=== PATIENT | female | born 1935 | race Caucasian/White ===

== ENCOUNTER 2021-05-22 14:12 | Emergency (ER) | payer MEDICARE, SELFPAY ==
--- NOTE | ~2021-05-22 | XR_ITS ---
EXAMINATION: XR chest 2V EXAM DATE: 05/22/2021 14:55 INDICATION: Cough and congestion, symptoms for days. TECHNIQUE: Frontal and lateral projections of the chest obtained and reviewed. Comparison is made to prior examination from 07/11/2018. FINDINGS: The lungs are clear. There are no pleural effusions. The cardiomediastinal silhouette is within normal limits. There is no pneumothorax suspected. The bones and soft tissues are unremarkab le. There is no significant interval change. There is aortic arteriosclerosis. IMPRESSION: No acute cardiopulmonary findings. Reviewed, dictated and finalized at location A. LINER MAKER
[2021-05-22 14:22] VITALS: BP 133/56; PULSE 71; RESP 16; TEMP 36.9; O2SAT 97
[2021-05-22 14:36] VITALS: BP 133/56; PULSE 71; RESP 16; TEMP 36.9; O2SAT 97
--- NOTE | 2021-05-22 14:41 | ED.GENADULT ---
HPI - General Adult General Chief complaint: Upper Respiratory Infection Stated complaint: Cough/Fever Source: patient and family (Daughter ) Mode of arrival: ambulatory Limitations: no limitations History of Present Illness HPI narrative: Pleasant 86 y/o female. PMHx MDD, HTN, HLD, DM II, Former smoker. Presents to [facility] today with Family. CC is nasal congestion, purulent nasal discharge, as well as cough with 'green' phlegm production. Manifestations present for the past 72 hours, worsening. She also endorses mild bilateral ear ache and subjective fever at home. Did not actually measure her temperature, but 'felt warm'. No chest pain, dyspnea, wheezing, edema. No known ill contacts. She tells me that she has had these symptoms many times before, and would like to catch it before it turns into pneumonia . Parties are without additional acute c/o illness upon PE. Related Data Home Medications Medication Instructions Recorded Confirmed amlodipine 10 mg PO DAILY 05/22/21 05/22/21 atorvastatin 40 mg PO DAILY 05/22/21 05/22/21 carvedilol 3.125 mg PO BID 05/22/21 05/22/21 metformin 1,000 mg PO BID 05/22/21 05/22/21 paroxetine HCl 20 mg PO DAILY 05/22/21 05/22/21 Allergies Allergy/AdvReac Type Severity Reaction Status Date / Time codeine Allergy Mild Rash Verified 05/22/21 14:33 iodine Allergy Mild Vomiting Verified 05/22/21 14:33 iron Allergy Mild Hives Verified 05/22/21 14:33 Penicillins Allergy Mild Rash Verified 05/22/21 14:33 Sulfa (Sulfonamide Allergy Mild Rash Verified 05/22/21 14:33 Antibiotics) Review of Systems Review of Systems: CONSTITUTIONAL: Positive fever. No chills, sweats. EYES: Denies visual changes, redness, discharge. ENT: Positive rhinorrhea, congestion. No sore throat, otalgia. CARDIOVASCULAR: Denies chest pain, palpitations, edema. RESPIRATORY: Denies dyspnea, wheezing. Positive productive 'green' cough GASTROINTESTINAL: Denies abdominal pain, nausea, vomiting, diarrhea. GENITOURINARY: Denies dysuria, hematuria, abnormal discharge SKIN: Denies rash or itching. MUSCULOSKELETAL: Denies acute back pain, joint pain, or myalgia. NEUROLOGIC: Denies numbness, or focal weakness. PSYCHIATRIC: Denies anxiety or depression. All systems reviewed & are unremarkable except as noted in HPI and below Exam Narrative: GENERAL: This is a well-nourished, well-developed adult, in no apparent distress. HEAD: normocephalic, atraumatic. EYES: PERRL. Sclera clear/white. EARS: External ears normal, auditory canals clear and without drainage, TMs normal. NOSE: External nose normal. Positive Rhinorrhea, no obstruction, nares patent. THROAT: Mucous membranes moist, posterior pharynx clear. No exudates. NECK: Neck supple, non-tender without lymphadenopathy, masses or thyromegaly. CARDIOVASCULAR: Regular rate and rhythm without murmurs, gallops, or rubs. No edema. RESPIRATORY: Upper airway Rhonchi, cleared with cough. Breath sounds equal bilaterally. No wheezes, rales, or stridor. No distress. GASTROINTESTINAL: Abdomen soft, non-tender, nondistended. Bowel sounds are active. No guarding. SKIN: warm, intact with no suspicious lesions or rash, good texture and turgor. NEURO: Alert, active, and age appropriate. No focal neurologic deficits. Course Vital Signs Vital signs: Vital Signs Temperature 36.9 C 05/22/21 14:22 Pulse Rate 71 05/22/21 14:22 Respiratory Rate 16 05/22/21 14:22 Blood Pressure 133/56 L 05/22/21 14:22 Pulse Oximetry 97 05/22/21 14:22 Temperature 36.9 C 05/22/21 14:36 Pulse Rate 71 05/22/21 14:36 Respiratory Rate 16 05/22/21 14:36 Blood Pressure 133/56 L 05/22/21 14:36 Pulse Oximetry 97 05/22/21 14:36 Medical Decision Making [facility] Narrative Medical decision making narrative: -No hypoxemia, no respiratory distress. Appears non-toxic. -Plain film chest imaging reveals No acute cardiopulmonary findings. -Former smoker and Hx inc
== END 2021-05-22 15:07 | disposition home or self-care (01) ==
PROVIDERS: Emergency Provider Nurse Practitioner Adult Health; PCP Internal Medicine
DX: J40 Bronchitis, not specified as acute or chronic (principal); J06.9 Acute upper respiratory infection, unspecified; F32.9 Major depressive disorder, single episode, unspecified; I10 Essential (primary) hypertension; E11.9 Type 2 diabetes mellitus without complications; Z87.891 Personal history of nicotine dependence
CPT/HCPCS: 71046; 99213; G0463

== ENCOUNTER 2021-10-30 17:06 | Emergency (ER) | payer MEDICARE, SELFPAY ==
--- NOTE | ~2021-10-30 | XR_ITS ---
EXAMINATION: XR chest 2V Exam Date/Time: 10/30/2021 17:30 CDT CLINICAL HISTORY: COUGH X 12 DAYS. HX: PNEUMONIA. SOB ON EXERTION. Comparison: 05/22/2021.. RESULT: Lines, tubes, and devices: None. Lungs and pleura: Clear. Cardiomediastinal silhouette: Stable cardiomediastinal silhouette. Other: No acute osseous or upper abdominal finding. IMPRESSION: No acute cardiopulmonary process Reviewed, dictated and finalized at location K.
--- NOTE | 2021-10-30 17:10 | ED.URI ---
HPI - URI/Sore Throat General Chief Complaint: Upper Respiratory Infection Stated Complaint: Cough/Chest Congestion Time Seen by Provider: 10/30/21 17:10 Source: patient Mode of arrival: ambulatory Limitations: no limitations History of Present Illness HPI Narrative: Ms. Holder is an 86-year-old female patient presenting to the clinic today with complaints of cough and chest congestion. She reports the symptoms have been going from on for approximately 12 days. Has had fever that started yesterday however today she is afebrile. Reports productive cough however she has not able to expectorate the phlegm. Reports she gets this every year and it turns into pneumonia. Her daughter is here with her today and states that they are trying to catch it before it turns into pneumonia. States that she is mildly short of breath upon exertion. MD elicited complaint: sore throat and nasal congestion Related Data Home Medications Medication Instructions Recorded Confirmed atorvastatin 40 mg PO DAILY 05/22/21 10/30/21 carvedilol 3.125 mg PO BID 05/22/21 10/30/21 metformin 1,000 mg PO DAILY 05/22/21 10/30/21 paroxetine HCl 20 mg PO DAILY 05/22/21 10/30/21 aspirin [Adult Low Dose Aspirin] 81 mg PO DAILY 10/30/21 10/30/21 Allergies Allergy/AdvReac Type Severity Reaction Status Date / Time codeine Allergy Mild Rash Verified 10/30/21 17:28 iodine Allergy Mild Vomiting Verified 10/30/21 17:28 iron Allergy Mild Hives Verified 10/30/21 17:28 Penicillins Allergy Mild Rash Verified 10/30/21 17:28 Sulfa (Sulfonamide Allergy Mild Rash Verified 10/30/21 17:28 Antibiotics) Review of Systems Review of Systems: Pertinent positives per HPI. Patient denies any fever, chills, rash, headache, visual changes, dizziness, cough, shortness of breath, chest pain, palpitations, nausea, vomiting, diarrhea, constipation, abdominal pain, or any urinary issues. PMFSH Comments At the time of my signature, I reviewed and agree with the nursing past medical, surgical, social, and family history. There is no relevant family history pertinent to the patient complaint. Exam Narrative: General: Well-developed, well nourished, in no apparent distress Head: Normocephalic, atraumatic Eyes: Pupils equally round and reactive to light bilaterally, EOM intact, sclera and conjunctive clear, no discharge, lids normal Ears: TMs intact and clear, ear canals clear, no drainage, grossly hearing normal. Nose: Nares patent, no discharge, no inflammation, no sinus tenderness. Mouth: Oral pharynx without lesions or masses, good dentition, MMM. Neck: Supple, trachea midline, no enlargement of anterior or posterior cervical nodes, no thyroid masses or goiter palpable. Cardio: Regular rate and rhythm, s1 and s2 normal, no murmur appreciated. Resp: Diminished lung sounds in the bases otherwise clear to auscultation bilaterally, no rhonchi, rales, wheezing or rubs Course Course Emergency Course: Portions of this record may have been created with voice recognition software. Level of Care: Express Care Visit Vital Signs Vital signs: Vital signs reviewed MDM - URI/Sore Throat MDM Narrative Medical decision making narrative: At the time of assessment patient is resting comfortably on the exam table. She reports cough and congestion x12 days. History of frequent pneumonia. Lung sounds clear but diminished in the bases, x-ray performed Differential Diagnosis Differential diagnosis: Likely upper respiratory infection, croup, otitis media, sinusitis, viral infection, bronchitis, influenza and pharyngitis Imaging Data Attestation: I personally reviewed and interpreted this imaging study as follows: My impression: Negative for pneumonia Radiologist's impression: [facility] [address] [place], [place] [phone] XRay ReportSigned Patient: Tavia Holder JDOB: 1935MR#: [id number]/Sex: 86 / FAcct:[id number]: EXPBETH ADM Date: 10/30/21Attending Dr:
[2021-10-30 17:12] VITALS: BP 124/50; PULSE 82; RESP 18; TEMP 36.3; O2SAT 98
[2021-10-30 17:30] VITALS: BP 124/50; PULSE 82; RESP 18; TEMP 36.3; O2SAT 98
== END 2021-10-30 17:50 | disposition home or self-care (01) ==
PROVIDERS: Emergency Provider Nurse Practitioner Family; PCP Internal Medicine
DX: J40 Bronchitis, not specified as acute or chronic (principal); Z79.82 Long term (current) use of aspirin; I25.10 Atherosclerotic heart disease of native coronary artery without angina pectoris; E78.00 Pure hypercholesterolemia, unspecified; I10 Essential (primary) hypertension; I25.2 Old myocardial infarction; Z86.73 Personal history of transient ischemic attack (TIA), and cerebral infarction without residual deficits; K21.9 Gastro-esophageal reflux disease without esophagitis; E11.9 Type 2 diabetes mellitus without complications; F32.A Depression, unspecified
CPT/HCPCS: 71046; 99213; G0463

== ENCOUNTER 2022-06-11 12:37 | Emergency (ER) | payer MEDICARE, SELFPAY ==
--- NOTE | ~2022-06-11 | XR_ITS ---
XR chest 2V 06/11/2022 13:10 Indication: Shortness of breath Procedure: 2 view chest Comparison: Comparison to multiple prior studies sequentially, with oldest reviewed study dated 12/2017. Findings: Heart size normal. No focal air space disease, pulmonary edema, pleural effusion or suspect ed pneumothorax. There is apical pleural thickening/scarring. There is an ill-defined nodular density left mid thorax. There is atherosclerosis of the aorta. Impression: 1: Ill-defined nodular density left mid thorax. Follow-up CT chest recommended to exclude parenchymal nodule. 2: No acute cardiopulmonary disease. Reviewed, dictated and finalized at location A. ICAL THERAPY MANAGER Impression: 1: Ill-defined nodular density left mid thorax. Follow-up CT chest recommended to exclude parenchymal nodule. 2: No acute cardiopulmonary disease.
[2022-06-11 12:55] VITALS: BP 119/43; PULSE 72; RESP 16; TEMP 36.3; O2SAT 96
--- NOTE | 2022-06-11 13:50 | ED.URI ---
HPI - URI/Sore Throat General Chief Complaint: Upper Respiratory Infection Stated Complaint: cough/bronchitis Time Seen by Provider: 06/11/22 13:50 Source: patient, RN notes reviewed and old records reviewed Mode of arrival: ambulatory Limitations: no limitations History of Present Illness HPI Narrative: 87-year-old female presents to the [facility] complaints of I have bronchitis he states that she normally gets bronchitis this time of year. Has not really had anything since COVID broke out. States that she needs an antibiotic, does not want to use steroids nor inhaler because it since her over the edge. MD elicited complaint: cough Related Data Home Medications Medication Instructions Recorded Confirmed atorvastatin 40 mg tablet 40 mg PO DAILY 05/22/21 06/11/22 carvedilol 3.125 mg tablet 3.125 mg PO BID 05/22/21 06/11/22 metformin 1,000 mg tablet 1,000 mg PO DAILY 05/22/21 06/11/22 paroxetine HCl 20 mg tablet 20 mg PO DAILY 05/22/21 06/11/22 aspirin 81 mg tablet 81 mg PO DAILY 10/30/21 06/11/22 Allergies Allergy/AdvReac Type Severity Reaction Status Date / Time codeine Allergy Mild Rash Verified 06/11/22 13:02 iodine Allergy Mild Vomiting Verified 06/11/22 13:02 iron Allergy Mild Hives Verified 06/11/22 13:02 Penicillins Allergy Mild Rash Verified 06/11/22 13:02 Sulfa (Sulfonamide Allergy Mild Rash Verified 06/11/22 13:02 Antibiotics) Review of Systems Review of Systems: All systems reviewed & are unremarkable except as noted in HPI and below Constitutional: Constitutional: Reports no additional constitutional complaints, Denies body ache(s), Denies chills, Denies fever(s) and Denies headache(s) Eyes: Eyes: Reports no additional eye complaints ENT: Reports system reviewed and no additional complaints, except as documented and Denies headache(s) Cardiovascular: Cardiovascular: Reports no additional cardiovascular complaints, Denies chest pain and Denies dyspnea Respiratory: Respiratory: Reports no additional respiratory complaints, Denies chest congestion, Reports cough and Denies dyspnea Gastrointestinal: Gastrointestinal: Reports no additional gastrointestinal complaints and Denies abdominal pain Musculoskeletal: Musculoskeletal: Reports no additional musculoskeletal complaints Integumentary/Breasts: Skin/Breast: Reports system reviewed and no additional complaints, except as docu Neurologic: Reports system reviewed and no additional complaints, except as documented and Denies headache(s) Psychiatric: Psychiatric: Reports no additional psychiatric complaints Allergic/Immunologic: Allergic/Immunologic: Reports no additional allergic/immunologic complaints PMFSH Comments At the time of my signature, I reviewed and agree with the nursing past medical, surgical, social, and family history. There is no relevant family history pertinent to the patient complaint. Exam Const: General: cooperative, comfortable, no acute distress, well developed, alert, ill appearing chronically; not acutely and well nourished Nutritional Appearance: well nourished Orientation/consciousness: patient oriented x3 Limitations: no limitations HENMT: Head: normal to inspection Ears: external ears normal Face/Nose/Sinus: Normal external nose present, Normal nares present, Normal nasal mucous membranes and turbinates present and normal facial exam Face and sinus: normal facial exam Mouth: Yes Normal oral and palatal mucosa present, Yes lip normal and Yes moist mucous membranes abnormal Eyes: General: appearance normal, both eyes and all related structures Alignment and Position: alignment normal Pupils: Equal, round and reactive pupils present Neck: Neck: normal visual inspection, full ROM, no lymphadenopathy and no meningeal signs Chest: Chest palpation & inspection: normal inspection of the chest Resp: Effort & Inspection: normal respiratory effort and no use of accessory muscles Auscultation: clear to auscultation b
== END 2022-06-11 14:45 | disposition home or self-care (01) ==
PROVIDERS: Emergency Provider Nurse Practitioner; PCP Internal Medicine
DX: J40 Bronchitis, not specified as acute or chronic (principal); Z79.82 Long term (current) use of aspirin
CPT/HCPCS: 71046; 99213; G0463

== ENCOUNTER 2022-09-25 15:14 | Emergency (ER) | payer MEDICARE, SELFPAY ==
[2022-09-25 15:31] VITALS: BP 133/54; PULSE 80; RESP 18; TEMP 36.4; O2SAT 98
--- NOTE | 2022-09-25 15:47 | ED.GENADULT ---
HPI - General Adult General Chief complaint: Upper Respiratory Infection Stated complaint: Cough Source: patient Mode of arrival: ambulatory Limitations: no limitations History of Present Illness HPI narrative: Patient presents for evaluation of sick symptoms for last week. Symptoms include sinus congestion, bilateral ear pressure, yellow discharge from the nares, cough, and sore throat. No fever, chills, nausea, vomiting, diarrhea, shortness of breath. She typically has the symptoms twice per year and usually is given doxycycline which helps her symptoms resolved. She has taken steroids in the past which also helped. She does not smoke. She lives at an assisted nursing facility. She states several individuals at the nursing facility have recently had respiratory symptoms. Related Data Home Medications Medication Instructions Recorded Confirmed atorvastatin 40 mg tablet 40 mg PO DAILY 05/22/21 09/25/22 carvedilol 3.125 mg tablet 3.125 mg PO BID 05/22/21 09/25/22 metformin 1,000 mg tablet 1,000 mg PO DAILY 05/22/21 09/25/22 paroxetine HCl 20 mg tablet 20 mg PO DAILY 05/22/21 09/25/22 aspirin 81 mg tablet 81 mg PO DAILY 10/30/21 09/25/22 amlodipine 10 mg tablet 10 mg PO DAILY 09/25/22 09/25/22 Allergies Allergy/AdvReac Type Severity Reaction Status Date / Time codeine Allergy Mild Rash Verified 09/25/22 15:29 iodine Allergy Mild Vomiting Verified 09/25/22 15:29 iron Allergy Mild Hives Verified 09/25/22 15:29 Penicillins Allergy Mild Rash Verified 09/25/22 15:29 Sulfa (Sulfonamide Allergy Mild Rash Verified 09/25/22 15:29 Antibiotics) Review of Systems Review of Systems: CONSTITUTIONAL: Denies fever, chills, or sweats. EYES: Denies visual changes, redness, or discharge. ENT: Reports sinus congestion, thick yellow discharge from nares, ear pressure and sore throat CARDIOVASCULAR: Denies chest pain, palpitations, or edema. RESPIRATORY: Reports cough. Denies SOB. GASTROINTESTINAL: Denies abdominal pain, nausea, vomiting, or diarrhea. GENITOURINARY: Denies dysuria or hematuria. SKIN: Denies rash or itching. MUSCULOSKELETAL: Denies back pain, joint pain, or myalgia. NEUROLOGIC: Denies headache, numbness, dizziness, or weakness. PSYCHIATRIC: Denies anxiety or depression. PMFSH Past Medical History Medical History Diabetes Hyperlipidemia Hypertension Vitamin D deficiency Surgical History Surgical History No pertinent past surgical history Family History Family History Mother Family history non-contributory Social History Social History Smoking status: Never smoker Substance use: never Living arrangements: assisted living Gender identity (if verbalized by the patient): Female Sexual Orientation (if Verbalized by the Patient): Straight or Heterosexual Spiritual care concerns: No Exam Narrative: GENERAL: Well-appearing, well-nourished, and in no acute distress. HEAD: Normocephalic, atraumatic. EYES: PERRLA and EOMI. ENT: Bilateral maxillary sinus tenderness. There is thick yellow discharge in both nares. Mucous membranes moist. Oropharynx without tonsillar hypertrophy exudate or other lesions. Bilateral TMs pearly rizo nonbulging NECK: Supple. No adenopathy or masses. No carotid bruits or JVD CHEST: Clear to auscultation. No respiratory distress. No wheezes rales or rhonchi HEART: Regular rate and rhythm. No murmur heard. Normal peripheral pulses. ABDOMEN: Soft, nontender, nondistended, normal active bowel sounds. EXTREMITIES: Normal range of motion. No edema. SKIN: Warm, dry, no rash. NEURO: No focal deficits. Alert and oriented x3. PSYCH: Normal mood and affect. Course Course Emergency Course: This is an 87-year-old female who presented for
== END 2022-09-25 15:48 | disposition home or self-care (01) ==
PROVIDERS: Emergency Provider Nurse Practitioner; PCP Internal Medicine
DX: J01.90 Acute sinusitis, unspecified (principal); B96.89 Other specified bacterial agents as the cause of diseases classified elsewhere; E11.9 Type 2 diabetes mellitus without complications; E78.5 Hyperlipidemia, unspecified; I10 Essential (primary) hypertension; Z79.82 Long term (current) use of aspirin; Z79.84 Long term (current) use of oral hypoglycemic drugs
CPT/HCPCS: 99213; G0463

== ENCOUNTER 2023-04-17 10:08 | Emergency (ER) | payer MEDICARE, SELFPAY ==
[2023-04-17 10:19] VITALS: BP 171/63; PULSE 70; RESP 18; TEMP 36.4; O2SAT 98
[2023-04-17 10:29] LABS: Glucose Point of Care 188 mg/dl (65-105)
--- NOTE | 2023-04-17 10:37 | ECG_ITS ---
Measurements Intervals Barry Rate: 72 P: -88 AK: 158 QRS: 37 QRSD: 73 T: 73 QT: 383 QTc: 421 Interpretive Statements SINUS RHYTHM WITH OCCASIONAL SUPRAVENTRICULAR PREMATURE COMPLEXES NO PREVIOUS ECG AVAILABLE FOR COMPARISON Electronically Signed On 04-17-2023 15:45:51 CDT by Oksana Manzanares M.D.
--- NOTE | 2023-04-17 10:39 | ED.GENADULT ---
HPI - General Adult General Chief complaint: Weakness Stated complaint: High Blood Pressure Source: patient, family and RN notes reviewed History of Present Illness HPI narrative: 88-year-old female presents to urgent care with daughter at side. Patient states she woke up this morning with bilateral leg weakness. Pt states she made it to the recliner but only b/c she was holding onto everything she could. Pt states her last known normal was probably 3:00 am. Pt denies any numbness, tingling, arm weakness, face weakness, trouble speaking, headache, dizziness, chest pain, shortness of breath, vomiting, dysuria, fevers, chills, or falls. 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 Related Data Home Medications Medication Instructions Recorded Confirmed atorvastatin 40 mg tablet 40 mg PO DAILY 05/22/21 04/17/23 carvedilol 3.125 mg tablet 3.125 mg PO BID 05/22/21 04/17/23 metformin 1,000 mg tablet 1,000 mg PO BID 05/22/21 04/17/23 paroxetine HCl 20 mg tablet 20 mg PO DAILY 05/22/21 04/17/23 amlodipine 10 mg tablet 10 mg PO DAILY 09/25/22 04/17/23 aspirin 81 mg chewable tablet 81 mg PO DAILY 04/17/23 04/17/23 Allergies Allergy/AdvReac Type Severity Reaction Status Date / Time codeine Allergy Mild Rash Verified 04/17/23 10:40 iodine Allergy Mild Vomiting Verified 04/17/23 10:40 iron Allergy Mild Hives Verified 04/17/23 10:40 Penicillins Allergy Mild Rash Verified 04/17/23 10:40 Sulfa (Sulfonamide Allergy Mild Rash Verified 04/17/23 10:40 Antibiotics) Review of Systems Review of Systems: CONSTITUTIONAL: Denies fever, chills, or sweats. EYES: Denies visual changes, redness, or discharge. ENT: Denies otalgia and sore throat CARDIOVASCULAR: Denies chest pain, palpitations, or edema. RESPIRATORY: Denies cough or dyspnea. GASTROINTESTINAL: Denies abdominal pain, nausea, vomiting, or diarrhea. GENITOURINARY: Denies dysuria or hematuria. SKIN: Denies rash or itching. MUSCULOSKELETAL: Bilateral leg weakness NEUROLOGIC: Denies headache, numbness, or weakness. Pertinent positives per HPI. [facility], [facility] Past Medical History Medical History (Updated 04/17/23 @ 10:48 by Clau Gibson APRN) Diabetes Hyperlipidemia Hypertension Vitamin D deficiency Surgical History Surgical History No pertinent past surgical history Family History Family History Mother Family history non-contributory Social History Social History Smoking status: Never smoker Substance use: never Living arrangements: assisted living Gender identity (if verbalized by the patient): Female Sexual Orientation (if Verbalized by the Patient): Straight or Heterosexual Spiritual care concerns: No Comments At the time of my signature, I reviewed and agree with the nursing past medical, surgical, social, and family history. There is no relevant family history pertinent to the patient complaint. Exam Narrative: GENERAL: This is a well-nourished, well-developed patient, in no apparent distress. HEAD: normocephalic, atraumatic. EYES: Sclera clear/white. Vision is grossly intact. EARS: External ears normal, auditory canals clear and without drainage. Hearing grossly intact. NOSE: External nose normal with no obvious nasal discharge, nares without redness, no rhinorrhea. THROAT: Mucous membranes moist, posterior pharynx clear. NECK: Neck supple, non-tender without lymphadenopathy, masses or thyromegaly. CARDIOVASCULAR: Regular rate and rhythm without murmurs, gallops, or rubs. RESPIRATORY: Clear to auscultation. Breath sounds equal bilaterally. No wheezes, rales, or rhonchi. GASTROINTESTINAL: Abdomen soft, non-tender, nondistended. Bowel sounds are active. No hepato-splenomegaly, or palpable masses. No guarding. SKIN: warm, intact with no suspicious lesions or rash, good texture a
[2023-04-17 10:45] VITALS: BP 150/80
== END 2023-04-17 10:45 | disposition short-term general hospital (02) ==
PROVIDERS: Emergency Provider Nurse Practitioner Family; PCP Internal Medicine
DX: R53.1 Weakness (principal); E11.9 Type 2 diabetes mellitus without complications; E78.5 Hyperlipidemia, unspecified; I10 Essential (primary) hypertension; Z79.899 Other long term (current) drug therapy; Z79.82 Long term (current) use of aspirin; Z79.84 Long term (current) use of oral hypoglycemic drugs
CPT/HCPCS: 82948; 93005; 99215; G0463

== ENCOUNTER 2023-07-12 14:59 | Emergency (ER) | payer MEDICARE, SELFPAY ==
[2023-07-12 15:05] VITALS: BP 143/47; PULSE 83; RESP 16; TEMP 36.2; O2SAT 96
--- NOTE | 2023-07-12 15:11 | ED.URI ---
HPI - URI/Sore Throat General Chief Complaint: Upper Respiratory Infection Stated Complaint: cough/ Time Seen by Provider: 07/12/23 15:41 Source: patient and RN notes reviewed Mode of arrival: ambulatory Limitations: no limitations History of Present Illness HPI Narrative: 88-year-old female presents with concern for cough, chest congestion. Reports cough is harsh. She reports some rhinorrhea nasal congestion. She reports history of pneumonia. She reports fatigue. Denies fever, chills, sweats. Reports body aches at baseline. She lives at an assisted living facility. MD elicited complaint: cough and sore throat Related Data Home Medications Medication Instructions Recorded Confirmed atorvastatin 40 mg tablet 40 mg PO DAILY 05/22/21 07/12/23 carvedilol 3.125 mg tablet 3.125 mg PO BID 05/22/21 07/12/23 metformin 1,000 mg tablet 1,000 mg PO BID 05/22/21 07/12/23 paroxetine HCl 20 mg tablet 20 mg PO DAILY 05/22/21 07/12/23 amlodipine 10 mg tablet 10 mg PO DAILY 09/25/22 07/12/23 aspirin 81 mg chewable tablet 81 mg PO DAILY 04/17/23 07/12/23 cholecalciferol (vitamin D3) 25 25 mcg PO DAILY 04/17/23 07/12/23 mcg (1,000 unit) capsule (Vitamin D3) cyanocobalamin (vitamin B-12) 1,000 mcg sublingual DAILY 04/17/23 07/12/23 1,000 mcg sublingual tablet Allergies Allergy/AdvReac Type Severity Reaction Status Date / Time codeine Allergy Mild Rash Verified 07/12/23 15:23 iodine Allergy Mild Vomiting Verified 07/12/23 15:23 iron Allergy Mild Hives Verified 07/12/23 15:23 Penicillins Allergy Mild Rash Verified 07/12/23 15:23 Sulfa (Sulfonamide Allergy Mild Rash Verified 07/12/23 15:23 Antibiotics) Review of Systems Review of Systems: CONSTITUTIONAL: Reports malaise, fatigue EYES: Denies visual changes, redness, or discharge. ENT: Reports rhinorrhea, congestion. Denies sinus pain, otalgia and sore throat. CARDIOVASCULAR: Denies chest pain, palpitations, or edema. RESPIRATORY: Reports harsh persistent cough. Denies dyspnea. GASTROINTESTINAL: Denies abdominal pain, nausea, vomiting, diarrhea SKIN: Denies rash or itching. MUSCULOSKELETAL: Reports myalgia. NEUROLOGIC: Denies headache. All systems reviewed & are unremarkable except as noted in HPI and below PMFSH Past Medical History Medical History (Updated 07/12/23 @ 15:40 by Anuja Hurley NP) Diabetes Hyperlipidemia Hypertension Vitamin D deficiency Surgical History Surgical History No pertinent past surgical history Family History Family History Mother Family history non-contributory Social History Social History Smoking status: Never smoker Substance use: never Living arrangements: assisted living Gender identity (if verbalized by the patient): Female Sexual Orientation (if Verbalized by the Patient): Straight or Heterosexual Spiritual care concerns: No Comments At time of signature, agree with nursing past medical, surgical, social and family history. There is no relevant family history pertinent to the presenting complaint Exam Narrative: GENERAL: Nontoxic-appearing, well-nourished, and in no acute distress. HEAD: Normocephalic EYES: PERRLA, conjunctivae clear ENT: Nares clear. Mucous membranes moist. TM pearly rizo with dull light reflex bilaterally; no tragal tenderness. Oropharynx not erythematous without lesions. Tonsils not enlarged and without exudate, no drooling, no hoarseness, no trismus, uvula midline. NECK: Supple. No lymphadenopathy CHEST: Scattered rhonchi, otherwise clear to auscultation, breath sounds equal. No wheezing, rales, or stridor. No respiratory distress, speaks in full sentences. HEART: Regular rate and rhythm. No murmur heard. SKIN: Warm, dry, no rash. NEURO: Alert and oriented x3. PSYCH: Normal mood and affect
== END 2023-07-12 15:45 | disposition home or self-care (01) ==
PROVIDERS: Emergency Provider Nurse Practitioner; PCP Internal Medicine
DX: J06.9 Acute upper respiratory infection, unspecified (principal); R05.9 Cough, unspecified; E11.9 Type 2 diabetes mellitus without complications; Z79.84 Long term (current) use of oral hypoglycemic drugs; E78.5 Hyperlipidemia, unspecified; I10 Essential (primary) hypertension; E55.9 Vitamin D deficiency, unspecified; Z79.82 Long term (current) use of aspirin
CPT/HCPCS: 99213; A4565; G0463

== ENCOUNTER 2023-10-27 08:03 | Emergency (ER) | payer MEDICARE, SELFPAY ==
[2023-10-27 08:12] VITALS: BP 152/65; PULSE 71; RESP 18; TEMP 36.5; O2SAT 97
--- NOTE | 2023-10-27 08:13 | ED.GENADULT ---
HPI - General Adult General Stated complaint: Left Shoulder Pain History of Present Illness HPI narrative: Patient brought in for evaluation of left arm pain for the past 2 days. Patient states the pain radiates from the left side of her neck down her arm to her shoulder blade. Patient has a history of NE in 1989. Patient is diabetic and has a history of hypertension. Patient does live in assisted living but does complain of any shortness of breath nausea vomiting. Related Data Home Medications Medication Instructions Recorded Confirmed atorvastatin 40 mg tablet 40 mg PO DAILY 05/22/21 07/12/23 carvedilol 3.125 mg tablet 3.125 mg PO BID 05/22/21 07/12/23 metformin 1,000 mg tablet 1,000 mg PO BID 05/22/21 07/12/23 paroxetine HCl 20 mg tablet 20 mg PO DAILY 05/22/21 07/12/23 amlodipine 10 mg tablet 10 mg PO DAILY 09/25/22 07/12/23 aspirin 81 mg chewable tablet 81 mg PO DAILY 04/17/23 07/12/23 cholecalciferol (vitamin D3) 25 25 mcg PO DAILY 04/17/23 07/12/23 mcg (1,000 unit) capsule (Vitamin D3) cyanocobalamin (vitamin B-12) 1,000 mcg sublingual DAILY 04/17/23 07/12/23 1,000 mcg sublingual tablet Allergies Allergy/AdvReac Type Severity Reaction Status Date / Time codeine Allergy Mild Rash Verified 07/12/23 15:23 iodine Allergy Mild Vomiting Verified 07/12/23 15:23 iron Allergy Mild Hives Verified 07/12/23 15:23 Penicillins Allergy Mild Rash Verified 07/12/23 15:23 Sulfa (Sulfonamide Allergy Mild Rash Verified 07/12/23 15:23 Antibiotics) Review of Systems Review of Systems: CONSTITUTIONAL: Denies fever, chills, or sweats. EYES: Denies visual changes, redness, or discharge. ENT: Denies rhinorrhea, congestion, sore throat, or otalgia. CARDIOVASCULAR: Denies chest pain, palpitations, or edema. RESPIRATORY: Denies cough or dyspnea. GASTROINTESTINAL: Denies abdominal pain, nausea, vomiting, or diarrhea. GENITOURINARY: Denies dysuria or hematuria. SKIN: Denies rash or itching. MUSCULOSKELETAL: Denies back pain, joint pain, or myalgia. NEUROLOGIC: Denies headache, numbness, or weakness. PSYCHIATRIC: Denies anxiety or depression. [facility] Past Medical History Medical History (Updated 10/27/23 @ 08:24 by MARIO Talbot) Diabetes Hyperlipidemia Hypertension Vitamin D deficiency Surgical History Surgical History No pertinent past surgical history Family History Family History Mother Family history non-contributory Social History Social History Smoking status: Never smoker Substance use: never Living arrangements: assisted living Gender identity (if verbalized by the patient): Female Sexual Orientation (if Verbalized by the Patient): Straight or Heterosexual Spiritual care concerns: No Comments At time of signature, agree with nursing past medical, surgical, social and family history. There is no relevant family history pertinent to the presenting complaint Exam Narrative: GENERAL: Well-appearing, well-nourished, and in no acute distress. HEAD: Normocephalic, atraumatic. EYES: PERRLA and EOMI. ENT: Nares clear, no rhinorrhea or epistaxis. Mucous membranes moist. NECK: Supple. CHEST: Clear to auscultation. No respiratory distress. HEART: Regular rate and rhythm. No murmur heard. Normal peripheral pulses. ABDOMEN: Soft, nontender, nondistended, normal active bowel sounds. EXTREMITIES: Normal range of motion. No edema. SKIN: Warm, dry, no rash. NEURO: No focal deficits. Alert and oriented x3. Gerber Coma Scale Eye Opening: Spontaneous 4 Gerber Coma Scale Motor: Obeys Commands 6 Gerber Coma Scale Verbal: Oriented 5 Gerber Coma Scale Total 15 Course Course Level of Care: Express Care Visit Transfer Transfered to: [facility] Transfer rationale: Higher level care rule out
--- NOTE | 2023-10-27 08:21 | PC.NURSE ---
report called to ANDREWS Rodriguez RN
== END 2023-10-27 08:27 | disposition short-term general hospital (02) ==
PROVIDERS: Emergency Provider Nurse Practitioner Family
DX: M79.622 Pain in left upper arm (principal); E11.9 Type 2 diabetes mellitus without complications; I10 Essential (primary) hypertension; I25.2 Old myocardial infarction; E78.5 Hyperlipidemia, unspecified; E55.9 Vitamin D deficiency, unspecified; Z79.82 Long term (current) use of aspirin
CPT/HCPCS: 99212; G0463